=== PATIENT | male | born 1955 | race Two or more races ===

== ENCOUNTER 2023-08-11 08:30 | Outpatient (CLI) | payer OTHER | END 2023-08-11 08:31 | disposition home or self-care (01) | LOC: NUCLEAR 08:30 | PROVIDERS: ATTEND Colon & Rectal Surgery | DX: C20 Malignant neoplasm of rectum (principal) | CPT/HCPCS: 78816; A9552 ==

== ENCOUNTER 2024-02-17 18:38 | Inpatient (IN) | payer OTHER ==
[~2024-02-17] VITALS: Ht 182.9 cm; Wt 93.0 kg
[2024-02-17] MEDS ORDERED: GABAPENTIN100 M2 (18:56)
[2024-02-17] MEDS ORDERED: SPIRONOLACTONE25 MG (18:59)
[2024-02-17] MEDS ORDERED: IRBESARTAN300 MG (18:59)
[2024-02-17] MEDS ORDERED: NIFEDIPINE ER60 MG (18:59)
[2024-02-17] MEDS ORDERED: XIGDUO XR 5 MG1 EAC1 (19:00)
[2024-02-17] MEDS ORDERED: JANUVIA100 MG (19:00)
[2024-02-17 19:30] LABS: HEMATOCRIT 41.2 % (39.0-48.0); HEMOGLOBIN 13.1 g/dL (13-16.00); MEAN CELL VOLUME 84.7 fL (80.0-100.00); MEAN CORPUSCULAR HGB CONC 31.9 g/dl (32.0-36.0); PLATELET COUNT 185 K/uL (150-450); RED BLOOD COUNT 4.86 M/uL (4.00-6.00); RED CELL DISTRIBUTION WIDTH 18.4 % (11.5-14.5)
[2024-02-17] MEDS ORDERED: ENOXAPARIN SODIUM 100 MG/ML SYRINGE SUBCUTANEO ONE (19:30)
[2024-02-17] MEDS ORDERED: 0.9 % SODIUM CHLORIDE 1,000 ML IV SCH ×3 (19:30→21:00)
[2024-02-17 19:35] LABS: ABG PH 7.444 (7.35-7.45); ABG PO2 78.9 mmHg (80-100); BASE EXCESS -0.1 mmol/l; BICARBONATE 23.4 mmol/l (23-25); SaO2 96.1 %; Tco2 24.5 mmol/l
[2024-02-17 19:39] LABS: allen test SATISFACTORY; o2 21 %; puncture site RADIAL RIGHT
[2024-02-17 19:55] LABS: ALBUMIN 3.3 gm/dL (3.4-5.0); BILIRUBIN TOTAL 0.29 mg/dL (0.3-1.2); CALCIUM 9.5 mg/dL (8.5-10.1); CREATININE SERUM 1.19 mg/dL (0.70-1.30); GFR 60.79; GLOBULINA 4.1 G/DL (2.4-3.5); TOTAL PROTEIN 7.4 gm/dL (6.4-8.2)
[2024-02-17 20:09] LABS: PROTHROMBIN TIME 10.9 SECONDS (9.0-11.5)
[2024-02-17 20:16] LABS: D DIMER 21.29 MG/L; PARTIAL THROMBOPLASTIN TIME 25.5 SECONDS (22.0-34.0)
[2024-02-17] MEDS ORDERED: FAMOTIDINE/PF 20 MG in 0.9 % SODIUM CHLORIDE 100 ML IV SCH (20:52)
[2024-02-17] MEDS ORDERED: DEXTROSE 50 % IN WATER 0.5 G/ML DISP.SYRIN IV PRN (21:00)
[2024-02-17] MEDS ORDERED: ONDANSETRON HCL 4 MG in 0.9 % SODIUM CHLORIDE 50 ML IV PRN (21:00)
[2024-02-17] MEDS ORDERED: ENOXAPARIN SODIUM 100 MG/ML SYRINGE SUBCUTANEO SCH (21:00)
[2024-02-17] MEDS ORDERED: INSULIN LISPRO 1,000 UNIT/10 ML UNITS SUBCUTANEO PRN (21:00)
[2024-02-17] MEDS ORDERED: FAMOTIDINE/PF 20 MG/2 ML VIAL ONE (21:14)
[2024-02-17] MEDS ORDERED: POTASSIUM CHLORIDE/D5-0.9%NACL 1,000 ML IV ONE (21:15)
[2024-02-17] MEDS ORDERED: NIFEDIPINE 60 MG TAB.SA.OSM PO SCH (21:17)
[2024-02-17] MEDS ORDERED: IRBESARTAN 300 MG TABLET PO SCH (21:17)
[2024-02-17 21:40] LABS: PH,URINE 5.5 (5.0-8.0); URINE APPEARANCE Clear; URINE BACTERIA 18.8 uL (0.0-1933); URINE BILIRRUBIN Negative (NEGATIVE); URINE BLOOD Negative; URINE COLOR Yellow; URINE KETONE Negative (NEGATIVE); URINE LEUKOCYTE Negative; URINE NITRATE Negative; URINE PROTEIN Negative (NEGATIVE); URINE UROBILINOGEN 0.2 E.U./dl
[2024-02-17 21:47] LABS: URINE CAST 0.15 uL (0.0-1.40); URINE EPITHELIAL CELLS 1.3 uL (0.0-38.8); URINE GLUCOSE >=1000 MG/DL (NEGATIVE); URINE RBC 0.3 uL (0.0-20.8); URINE WBC 0.9 uL (0.0-23.2)
[2024-02-17 21:59] LABS: MAGNESIUM 1.9 mg/dL (1.8-2.4)
[2024-02-17 22:01] LABS: C-REACTIVE PROTEIN 0.83 MG/DL (0.00-0.29)
[2024-02-17 23:55] VITALS: BP 145/76; O2SAT 97
[2024-02-18] VITALS (7 sets, daily range): BP systolic 110–152; BP diastolic 79–81; O2SAT 96–97
[2024-02-18 06:39] LABS: ABG PH 7.427 (7.35-7.45); ABG pCO2 35.8 mmHg (35-45); BASE EXCESS -0.8 mmol/l; BICARBONATE 23.1 mmol/l (23-25); SaO2 94.9 %; Tco2 24.4 mmol/l; allen test SATISFACTORY; o2 21 %; puncture site RADIAL LEFT
[2024-02-18 06:40] LABS: ABG PO2 73.3 mmHg (80-100)
[2024-02-18] MEDS ORDERED: POTASSIUM CHLORIDE IN WATER 40 MEQ/100 ML PIGGYBAG IV SCH (12:00)
[2024-02-18] MEDS ORDERED: APIXABAN 5 MG TABLET PO SCH (17:00)
[2024-02-19] VITALS (9 sets, daily range): BP systolic 142–152; BP diastolic 80–93; O2SAT 92–96
[2024-02-19 10:07] LABS: HEMATOCRIT 35.8 % (39.0-48.0); HEMOGLOBIN 11.6 g/dL (13-16.00); MEAN CELL VOLUME 84.9 fL (80.0-100.00); MEAN CORPUSCULAR HEMOGLOBIN 27.5 pg (27.00-32.0); MEAN CORPUSCULAR HGB CONC 32.4 g/dl (32.0-36.0); RED BLOOD COUNT 4.21 M/uL (4.00-6.00); RED CELL DISTRIBUTION WIDTH 18.4 % (11.5-14.5)
[2024-02-19 10:08] LABS: PLATELET COUNT 129 K/uL (150-450)
[2024-02-19 10:29] LABS: ALBUMIN 2.8 gm/dL (3.4-5.0); BILIRUBIN TOTAL 0.28 mg/dL (0.3-1.2); CALCIUM 9.3 mg/dL (8.5-10.1); CREATININE SERUM 0.85 mg/dL (0.70-1.30); GFR 89.63; GLOBULINA 3.5 G/DL (2.4-3.5); TOTAL PROTEIN 6.3 gm/dL (6.4-8.2)
[2024-02-19 11:26] LABS: POTASSIUM 2.76 mEq/L (3.5-5.1)
[2024-02-19] MEDS ORDERED: POTASSIUM CHLORIDE 10 MEQ CAPSULE PO STA (11:26)
[2024-02-19] MEDS ORDERED: MAGNESIUM SULFATE IN WATER 50 ML IV NR (12:00)
[2024-02-19] MEDS ORDERED: POTASSIUM CHLORIDE 10 MEQ CAPSULE PO SCH (18:00)
[2024-02-20] VITALS (10 sets, daily range): BP systolic 131–160; BP diastolic 80–102; O2SAT 90–98
[2024-02-20 09:34] LABS: CALCIUM 8.8 mg/dL (8.5-10.1); CREATININE SERUM 0.91 mg/dL (0.70-1.30); GFR 82.85
[2024-02-20 10:39] LABS: POTASSIUM 2.77 mEq/L (3.5-5.1)
[2024-02-20] MEDS ORDERED: POTASSIUM CHLORIDE 10 MEQ CAPSULE PO SCH (13:00)
[2024-02-20] MEDS ORDERED: POTASSIUM CHLORIDE 10 MEQ CAPSULE PO ONE (21:56)
[2024-02-21 00:21] VITALS: O2SAT 94
[2024-02-21 01:54] VITALS: BP 130/69
[2024-02-21 05:26] VITALS: O2SAT 95
[2024-02-21 08:37] LABS: CALCIUM 9.1 mg/dL (8.5-10.1); CREATININE SERUM 0.76 mg/dL (0.70-1.30); GFR 101.99; POTASSIUM 3.15 mEq/L (3.5-5.1)
[2024-02-21 08:52] VITALS: BP 150/80; O2SAT 96
[2024-02-21 10:26] VITALS: O2SAT 95
[2024-02-21] MEDS ORDERED: SPIRONOLACTONE 50 MG TABLET PO SCH (11:18)
[2024-02-21] MEDS ORDERED: POTASSIUM CHLORIDE 10 MEQ CAPSULE PO SCH (12:00)
[2024-02-21] MEDS ORDERED: POTASSIUM CHLORIDE IN WATER 100 ML IV SCH (13:00)
[2024-02-21 16:00] VITALS: BP 153/86; O2SAT 95
[2024-02-21] MEDS ORDERED: ENOXAPARIN SODIUM 100 MG/ML SYRINGE SUBCUTANEO SCH (21:00)
[2024-02-22 02:25] VITALS: BP 160/85; O2SAT 98
[2024-02-22 08:18] VITALS: BP 154/83
[2024-02-22 09:06] LABS: HEMATOCRIT 38.3 % (39.0-48.0); HEMOGLOBIN 12.6 g/dL (13-16.00); MEAN CELL VOLUME 83.7 fL (80.0-100.00); MEAN CORPUSCULAR HEMOGLOBIN 27.5 pg (27.00-32.0); MEAN CORPUSCULAR HGB CONC 32.9 g/dl (32.0-36.0); PLATELET COUNT 188 K/uL (150-450); RED BLOOD COUNT 4.57 M/uL (4.00-6.00); RED CELL DISTRIBUTION WIDTH 18.4 % (11.5-14.5)
[2024-02-22 09:24] LABS: CALCIUM 9.8 mg/dL (8.5-10.1); CREATININE SERUM 0.87 mg/dL (0.70-1.30); GFR 87.26; POTASSIUM 3.32 mEq/L (3.5-5.1)
[2024-02-22] MEDS ORDERED: POTASSIUM CHLORIDE 20MEQ/100ML H2O PB IV NR (11:00)
[2024-02-22 17:18] VITALS: BP 138/95
[2024-02-22] MEDS ORDERED: IOVERSOL 320 MG/ML - 50 ML VIAL IV ONE (21:11)
[2024-02-23 01:19] VITALS: BP 162/100; O2SAT 98
[2024-02-23 04:04] VITALS: BP 140/80
[2024-02-23 07:53] VITALS: BP 151/103
[2024-02-23] MEDS ORDERED: ENOXAPARIN SODIUM 100 MG/ML SYRINGE SUBCUTANEO NR (09:00)
[2024-02-23 11:03] LABS: CALCIUM 9.6 mg/dL (8.5-10.1); CREATININE SERUM 0.77 mg/dL (0.70-1.30); GFR 100.47; MAGNESIUM 1.8 mg/dL (1.8-2.4); PHOSPHOROUS 3.2 mg/dL (2.5-4.9); POTASSIUM 3.16 mEq/L (3.5-5.1)
[2024-02-23] MEDS ORDERED: POTASSIUM CHLORIDE IN WATER 40 MEQ/100 ML PIGGYBAG IV SCH (14:00)
[2024-02-23] MEDS ORDERED: AA 4.25%/CAL/LYTES/DEXT 5% 2,000 ML PERIFERAL SCH (17:00)
[2024-02-23] MEDS ORDERED: DOXAZOSIN MESYLATE 4 MG TABLET PO SCH (21:00)
[2024-02-23 22:05] VITALS: BP 150/90
[2024-02-24 01:22] VITALS: BP 109/68; O2SAT 96
[2024-02-24 09:28] VITALS: BP 160/98; O2SAT 98
[2024-02-24 09:35] LABS: CALCIUM 9.2 mg/dL (8.5-10.1); CREATININE SERUM 0.7 mg/dL (0.70-1.30); GFR 112.15; MAGNESIUM 1.9 mg/dL (1.8-2.4); PHOSPHOROUS 3.1 mg/dL (2.5-4.9); POTASSIUM 3.28 mEq/L (3.5-5.1)
[2024-02-24] MEDS ORDERED: ENALAPRILAT DIHYDRATE 1.25 MG/ML VIAL IV ONE (09:35)
[2024-02-24 09:39] LABS: CHOL HDL RATIO 3.3 (0-5.0)
[2024-02-24] MEDS ORDERED: ENALAPRILAT DIHYDRATE 1.25 MG/ML VIAL IV PRN (09:45)
[2024-02-24] MEDS ORDERED: POTASSIUM CHLORIDE IN WATER 40 MEQ/100 ML PIGGYBAG IV SCH (12:00)
[2024-02-24] MEDS ORDERED: BUPIVACAINE HCL/MPF 0.5% 30ML VIAL ONE (12:52)
[2024-02-24] MEDS ORDERED: LIDOCAINE HCL 1%/EPINEPHRINE 20ML VIAL IJ ONE (12:52)
[2024-02-24] MEDS ORDERED: METRONIDAZOLE/SODIUM CHLORIDE 500 MG/100 ML PIGGYBACK IV ONE (12:53)
[2024-02-24] MEDS ORDERED: CEFTRIAXONE SODIUM 2,000 MG VIAL ONE (12:53)
[2024-02-24] MEDS ORDERED: MORPHINE SULFATE 4 MG/ML CARTRIDGE IV PRN (13:15)
[2024-02-24] MEDS ORDERED: OxyCODONE HCL 5 MG TABLET (ROXICODONE) PO PRN (13:15)
[2024-02-24] MEDS ORDERED: DEXTROSE 50 % IN WATER 0.5 G/ML DISP.SYRIN IV PRN (13:15)
[2024-02-24] MEDS ORDERED: AA 4.25%/CAL/LYTES/DEXT 5% 1,000 ML PERIFERAL SCH (17:00)
[2024-02-24] MEDS ORDERED: FAMOTIDINE/PF 20 MG/2 ML VIAL IV SCH (21:00)
[2024-02-24] MEDS ORDERED: ENOXAPARIN SODIUM 100 MG/ML SYRINGE SUBCUTANEO SCH (21:00)
[2024-02-24 21:41] VITALS: BP 152/84
[2024-02-25 01:56] VITALS: BP 140/85
[2024-02-25 08:11] LABS: HEMATOCRIT 32.9 % (39.0-48.0); HEMOGLOBIN 10.8 g/dL (13-16.00); MEAN CELL VOLUME 82.9 fL (80.0-100.00); MEAN CORPUSCULAR HEMOGLOBIN 27.3 pg (27.00-32.0); MEAN CORPUSCULAR HGB CONC 32.9 g/dl (32.0-36.0); PLATELET COUNT 201 K/uL (150-450); RED BLOOD COUNT 3.96 M/uL (4.00-6.00); RED CELL DISTRIBUTION WIDTH 17.6 % (11.5-14.5)
[2024-02-25 08:19] VITALS: BP 157/82
[2024-02-25 08:23] LABS: ALBUMIN 2.6 gm/dL (3.4-5.0); CALCIUM 8.5 mg/dL (8.5-10.1); CREATININE SERUM 0.56 mg/dL (0.70-1.30); GFR 145.08; MAGNESIUM 1.8 mg/dL (1.8-2.4); POTASSIUM 5.5 mEq/L (3.5-5.1)
[2024-02-25] MEDS ORDERED: LACTOBACILLUS ACIDOPHILUS 1 CAP CAP PO SCH (09:00)
[2024-02-25] MEDS ORDERED: hydrALAZINE HCL 25 MG TABLET PO STA (11:32)
[2024-02-25 16:00] VITALS: BP 122/80; O2SAT 98
[2024-02-25] MEDS ORDERED: POTASSIUM CHLORIDE IN WATER 40 MEQ/100 ML PIGGYBAG IV ONE (16:03)
[2024-02-25] MEDS ORDERED: MAGNESIUM SULFATE 50% 1,000 MG/2 ML VIAL IV ONE (17:00)
[2024-02-25] MEDS ORDERED: hydrALAZINE HCL 25 MG TABLET PO SCH (17:00)
[2024-02-25] MEDS ORDERED: ENOXAPARIN SODIUM 40 MG/0.4 ML SYRINGE SUBCUTANEO SCH (17:00)
[2024-02-25] MEDS ORDERED: MAGNESIUM SULFATE IN WATER 2 GM/50 ML PIGGYBAG IV ONE (18:12)
[2024-02-26 01:38] VITALS: BP 123/70
[2024-02-26 08:18] LABS: HEMATOCRIT 34.4 % (39.0-48.0); HEMOGLOBIN 11.2 g/dL (13-16.00); MEAN CELL VOLUME 84.6 fL (80.0-100.00); MEAN CORPUSCULAR HEMOGLOBIN 27.4 pg (27.00-32.0); MEAN CORPUSCULAR HGB CONC 32.4 g/dl (32.0-36.0); PLATELET COUNT 206 K/uL (150-450); RED BLOOD COUNT 4.07 M/uL (4.00-6.00); RED CELL DISTRIBUTION WIDTH 17.7 % (11.5-14.5)
[2024-02-26 08:30] LABS: ALBUMIN 2.7 gm/dL (3.4-5.0); CALCIUM 9.1 mg/dL (8.5-10.1); CREATININE SERUM 0.65 mg/dL (0.70-1.30); GFR 122.16; MAGNESIUM 2.2 mg/dL (1.8-2.4); PHOSPHOROUS 3.2 mg/dL (2.5-4.9)
[2024-02-26 08:51] LABS: POTASSIUM 2.69 mEq/L (3.5-5.1)
[2024-02-26] MEDS ORDERED: AMLODIPINE BESYLATE 5 MG TABLET PO SCH (09:00)
[2024-02-26] MEDS ORDERED: POTASSIUM CHLORIDE IN WATER 40 MEQ/100 ML PIGGYBAG IV SCH (09:08)
[2024-02-26] MEDS ORDERED: SPIRONOLACTONE 50 MG TABLET PO SCH (09:08)
[2024-02-26 09:20] VITALS: BP 149/90
[2024-02-26 16:00] VITALS: BP 134/69; O2SAT 96
[2024-02-26] MEDS ORDERED: CLONAZEPAM 0.5 MG TABLET PO SCH (21:00)
[2024-02-27 02:15] VITALS: BP 131/77; O2SAT 95
[2024-02-27 06:13] LABS: HEMATOCRIT 34.2 % (39.0-48.0); HEMOGLOBIN 11.2 g/dL (13-16.00); MEAN CELL VOLUME 82.9 fL (80.0-100.00); MEAN CORPUSCULAR HEMOGLOBIN 27.2 pg (27.00-32.0); MEAN CORPUSCULAR HGB CONC 32.7 g/dl (32.0-36.0); PLATELET COUNT 197 K/uL (150-450); RED BLOOD COUNT 4.12 M/uL (4.00-6.00); RED CELL DISTRIBUTION WIDTH 17.5 % (11.5-14.5)
[2024-02-27 06:52] LABS: INR 1.07; PARTIAL THROMBOPLASTIN TIME 29.5 SECONDS (22.0-34.0); PROTHROMBIN TIME 11.6 SECONDS (9.0-11.5)
[2024-02-27 06:55] LABS: ALBUMIN 2.7 gm/dL (3.4-5.0); ALKALINE PHOSPHATASE 73 U/L (50-136); ALT/SGPT 15 U/L (12-78); ANION GAP 11 (10.0-20.0); AST/SGOT 16 U/L (15-37); BILIRUBIN TOTAL 0.28 mg/dL (0.3-1.2); BILIRUBIN,CONJUGATED < 0.10 mg/dL (0.0-0.2); BILIRUBIN,UNCONJUGATED 0.18 mg/dL (0.0-0.6); BLOOD UREA NITROGEN 14 mg/dL (7-18); BUN CREA RATIO 23 (7.0-25.0); CALCIUM 9.1 mg/dL (8.5-10.1); CARBON DIOXIDE 26 mEq/L (21-32); CHLORIDE 110 mmol/L (98-107); CHOL HDL RATIO 3.3 (0-5.0); CHOLESTEROL 185 mg/dL (0-200); CREATININE SERUM 0.62 mg/dL (0.70-1.30); GLOBULINA 3.2 G/DL (2.4-3.5); GLUCOSE FASTING 139 mg/dL (65-100); HDL 56 mg/dl (40-60); LDL 110 mg/dl (0-130); OSMOLALITY SERUM 290 MOSM/KG (275-295); SODIUM 144 mmol/L (136-145); TOTAL IRON BINDING CAPACITY 393 ug/dl (250-450); TOTAL PROTEIN 5.9 gm/dL (6.4-8.2); TRIGLYCERIDES 97 mg/dL (0-150); VLDL 19 (0-39)
[2024-02-27 07:14] LABS: POTASSIUM 2.83 mEq/L (3.5-5.1)
[2024-02-27] MEDS ORDERED: POTASSIUM CHLORIDE 10 MEQ CAPSULE PO NR ×2 (07:52→13:00)
[2024-02-27 08:25] VITALS: BP 125/75; O2SAT 96
[2024-02-27 08:44] LABS: UREA CLEARANCE 18.6 ML/MIN
[2024-02-27 17:11] VITALS: BP 145/78; O2SAT 100
[2024-02-28] MEDS ORDERED: POTASSIUM CHLORIDE IN WATER 40 MEQ/100 ML PIGGYBAG IV SCH ×2 (01:00→09:00)
[2024-02-28 02:56] VITALS: BP 124/69; O2SAT 96
[2024-02-28 09:49] VITALS: BP 147/84; O2SAT 99
[2024-02-28 09:57] LABS: HEMATOCRIT 35.2 % (39.0-48.0); HEMOGLOBIN 11.5 g/dL (13-16.00); MEAN CELL VOLUME 83.1 fL (80.0-100.00); MEAN CORPUSCULAR HEMOGLOBIN 27.1 pg (27.00-32.0); MEAN CORPUSCULAR HGB CONC 32.6 g/dl (32.0-36.0); PLATELET COUNT 210 K/uL (150-450); RED BLOOD COUNT 4.23 M/uL (4.00-6.00); RED CELL DISTRIBUTION WIDTH 17.2 % (11.5-14.5)
[2024-02-28 19:15] VITALS: BP 136/68; O2SAT 96
[2024-02-28 22:33] VITALS: BP 149/78; O2SAT 96
[2024-02-29 02:10] VITALS: BP 153/82; O2SAT 98
[2024-02-29 08:42] LABS: CALCIUM 9.5 mg/dL (8.5-10.1); CREATININE SERUM 0.69 mg/dL (0.70-1.30); GFR 114.02; POTASSIUM 3.22 mEq/L (3.5-5.1)
[2024-02-29 09:05] VITALS: BP 105/65
[2024-02-29] MEDS ORDERED: POTASSIUM CHLORIDE 10 MEQ CAPSULE PO SCH (13:00)
[2024-02-29] MEDS ORDERED: BUPIVACAINE HCL/PF 0.25% 30ML VIAL InF ONE (14:00)
[2024-02-29] MEDS ORDERED: LIDOCAINE HCL 1%/EPINEPHRINE 20ML VIAL IJ ONE (14:00)
[2024-02-29] MEDS ORDERED: ERTAPENEM SODIUM 1,000 MG VIAL IV STA (14:37)
[2024-02-29] MEDS ORDERED: OxyCODONE HCL/APAP UD (PERCOCET) PO PRN (14:45)
[2024-02-29] MEDS ORDERED: GABAPENTIN 300 MG CAPSULE PO SCH (17:00)
[2024-02-29] MEDS ORDERED: SIMETHICONE 125 MG CAPSULE PO SCH (17:00)
[2024-02-29 17:06] LABS: HEMATOCRIT 37.5 % (39.0-48.0); MEAN CELL VOLUME 84.3 fL (80.0-100.00); PLATELET COUNT 217 K/uL (150-450); RED BLOOD COUNT 4.44 M/uL (4.00-6.00)
[2024-02-29] MEDS ORDERED: MORPHINE SULFATE 4 MG/ML VIAL IV ONE (17:30)
[2024-02-29 17:33] LABS: ALBUMIN 2.9 gm/dL (3.4-5.0); CREATININE SERUM 0.74 mg/dL (0.70-1.30); GFR 105.18; MAGNESIUM 1.9 mg/dL (1.8-2.4)
[2024-02-29] MEDS ORDERED: MORPHINE SULFATE 2 MG/ML CARTRIDGE IV ONE (18:00)
[2024-02-29 18:01] LABS: POTASSIUM 2.94 mEq/L (3.5-5.1)
[2024-02-29 23:07] VITALS: BP 124/76; O2SAT 97
[2024-03-01] MEDS ORDERED: POTASSIUM CHLORIDE 10 MEQ CAPSULE PO SCH ×4 (01:00→18:00)
[2024-03-01 06:17] LABS: HEMATOCRIT 40.5 % (39.0-48.0); HEMOGLOBIN 13.3 g/dL (13-16.00); MEAN CELL VOLUME 84.3 fL (80.0-100.00); MEAN CORPUSCULAR HEMOGLOBIN 27.6 pg (27.00-32.0); MEAN CORPUSCULAR HGB CONC 32.8 g/dl (32.0-36.0); PLATELET COUNT 191 K/uL (150-450); RED CELL DISTRIBUTION WIDTH 17.8 % (11.5-14.5)
[2024-03-01 07:12] LABS: CALCIUM 9.4 mg/dL (8.5-10.1); CREATININE SERUM 0.73 mg/dL (0.70-1.30); GFR 106.84; MAGNESIUM 2.2 mg/dL (1.8-2.4); PHOSPHOROUS 3.4 mg/dL (2.5-4.9); POTASSIUM 3.04 mEq/L (3.5-5.1)
[2024-03-01] MEDS ORDERED: POTASSIUM CHLORIDE IN WATER 100 ML IV SCH (09:00)
[2024-03-01] MEDS ORDERED: LACTOBACILLUS ACIDOPHILUS 1 CAP CAP PO SCH (09:00)
[2024-03-01 09:51] VITALS: BP 140/73
[2024-03-01] MEDS ORDERED: POTASSIUM CHLORIDE 10 MEQ CAPSULE PO NR (10:20)
[2024-03-01 16:34] VITALS: BP 121/75; O2SAT 92
[2024-03-01] MEDS ORDERED: ENOXAPARIN SODIUM 100 MG/ML SYRINGE SUBCUTANEO SCH (17:00)
[2024-03-01] MEDS ORDERED: ENOXAPARIN SODIUM 40 MG/0.4 ML SYRINGE SUBCUTANEO SCH (17:00)
[2024-03-02 01:04] VITALS: BP 150/79; O2SAT 95
[2024-03-02 04:57] VITALS: BP 150/90; O2SAT 98
[2024-03-02 05:51] LABS: ALBUMIN 2.8 gm/dL (3.4-5.0); CALCIUM 9.7 mg/dL (8.5-10.1); CREATININE SERUM 0.74 mg/dL (0.70-1.30); GFR 105.18; MAGNESIUM 2.1 mg/dL (1.8-2.4); PHOSPHOROUS 3.2 mg/dL (2.5-4.9); POTASSIUM 3.32 mEq/L (3.5-5.1)
[2024-03-02 06:53] LABS: HEMATOCRIT 41.1 % (39.0-48.0); HEMOGLOBIN 13.5 g/dL (13-16.00); MEAN CELL VOLUME 82.5 fL (80.0-100.00); MEAN CORPUSCULAR HEMOGLOBIN 27.2 pg (27.00-32.0); PLATELET COUNT 190 K/uL (150-450); RED BLOOD COUNT 4.98 M/uL (4.00-6.00); RED CELL DISTRIBUTION WIDTH 17.4 % (11.5-14.5)
[2024-03-02] MEDS ORDERED: POTASSIUM PHOS,M-BASIC-D-BASIC 15 MM in 0.9 % SODIUM CHLORIDE 250 ML IV NR (08:52)
[2024-03-02] MEDS ORDERED: POTASSIUM CHLORIDE 10 MEQ CAPSULE PO SCH (09:00)
[2024-03-02 09:41] VITALS: BP 159/94; O2SAT 96
[2024-03-02 16:32] VITALS: BP 186/100
[2024-03-02 19:46] VITALS: BP 156/93
[2024-03-03 00:24] VITALS: BP 160/85; O2SAT 98
[2024-03-03 03:58] VITALS: O2SAT 90
[2024-03-03] MEDS ORDERED: POTASSIUM CHLORIDE 20MEQ/100ML H2O PB IV ONE (05:15)
[2024-03-03 06:48] LABS: HEMATOCRIT 40.4 % (39.0-48.0); HEMOGLOBIN 13.3 g/dL (13-16.00); MEAN CELL VOLUME 82.8 fL (80.0-100.00); MEAN CORPUSCULAR HEMOGLOBIN 27.3 pg (27.00-32.0); PLATELET COUNT 167 K/uL (150-450); RED BLOOD COUNT 4.88 M/uL (4.00-6.00); RED CELL DISTRIBUTION WIDTH 17.6 % (11.5-14.5)
[2024-03-03 07:50] LABS: CALCIUM 9.5 mg/dL (8.5-10.1); CREATININE SERUM 0.63 mg/dL (0.70-1.30); GFR 126.65; POTASSIUM 3.81 mEq/L (3.5-5.1)
[2024-03-03 07:51] LABS: ALBUMIN 2.7 gm/dL (3.4-5.0); CALCIUM 9.5 mg/dL (8.5-10.1); CREATININE SERUM 0.63 mg/dL (0.70-1.30); GFR 126.65; MAGNESIUM 1.9 mg/dL (1.8-2.4); PHOSPHOROUS 3.4 mg/dL (2.5-4.9); POTASSIUM 3.64 mEq/L (3.5-5.1)
[2024-03-03 08:38] VITALS: BP 143/90; O2SAT 97
[2024-03-03 15:50] VITALS: BP 140/80; O2SAT 98
[2024-03-04 01:12] VITALS: BP 135/81; O2SAT 97
[2024-03-04 09:00] VITALS: BP 166/89; O2SAT 98
[2024-03-04] MEDS ORDERED: MAGNESIUM SULFATE/D5W 100 ML IV NR (11:15)
[2024-03-04] MEDS ORDERED: NAPH,MB-DB/K PH,MBDB 1 PKT PACKET PO NR (11:15)
[2024-03-04] MEDS ORDERED: ONDANSETRON HCL 2 MG/ML VIAL IV PRN (14:30)
[2024-03-04 16:53] VITALS: BP 145/60; O2SAT 98
[2024-03-05 00:58] VITALS: BP 160/85; O2SAT 97
[2024-03-05 08:46] VITALS: BP 147/84; O2SAT 97
[2024-03-05] MEDS ORDERED: LOPERAMIDE HCL 2 MG CAPSULE PO STA (12:51)
[2024-03-05] MEDS ORDERED: LOPERAMIDE HCL 2 MG CAPSULE PO SCH (13:00)
[2024-03-05 16:10] LABS: HEMATOCRIT 37.6 % (39.0-48.0); HEMOGLOBIN 12.3 g/dL (13-16.00); MEAN CELL VOLUME 81.5 fL (80.0-100.00); MEAN CORPUSCULAR HEMOGLOBIN 26.7 pg (27.00-32.0); MEAN CORPUSCULAR HGB CONC 32.7 g/dl (32.0-36.0); PLATELET COUNT 177 K/uL (150-450); RED BLOOD COUNT 4.61 M/uL (4.00-6.00); RED CELL DISTRIBUTION WIDTH 16.8 % (11.5-14.5)
[2024-03-05 16:29] LABS: ALBUMIN 2.7 gm/dL (3.4-5.0); CALCIUM 9.3 mg/dL (8.5-10.1); CREATININE SERUM 0.76 mg/dL (0.70-1.30); GFR 101.99; PHOSPHOROUS 3.1 mg/dL (2.5-4.9)
[2024-03-05 16:55] VITALS: BP 134/96; O2SAT 96
[2024-03-05 17:26] LABS: POTASSIUM 2.56 mEq/L (3.5-5.1)
[2024-03-05 20:37] VITALS: BP 170/80; O2SAT 96
[2024-03-05] MEDS ORDERED: APIXABAN 5 MG TABLET PO SCH (21:00)
[2024-03-05] MEDS ORDERED: POTASSIUM CHLORIDE 10 MEQ CAPSULE PO SCH (21:00)
[2024-03-06 00:44] VITALS: BP 140/85; O2SAT 97
[2024-03-06 05:24] VITALS: BP 165/80; O2SAT 99
[2024-03-06 07:50] LABS: HEMATOCRIT 40.4 % (39.0-48.0); HEMOGLOBIN 13.2 g/dL (13-16.00); MEAN CELL VOLUME 83.1 fL (80.0-100.00); MEAN CORPUSCULAR HEMOGLOBIN 27.2 pg (27.00-32.0); MEAN CORPUSCULAR HGB CONC 32.7 g/dl (32.0-36.0); PLATELET COUNT 183 K/uL (150-450); RED BLOOD COUNT 4.86 M/uL (4.00-6.00); RED CELL DISTRIBUTION WIDTH 16.6 % (11.5-14.5)
[2024-03-06 08:24] LABS: CREATININE SERUM 0.82 mg/dL (0.70-1.30); GFR 93.43; PHOSPHOROUS 2.8 mg/dL (2.5-4.9)
[2024-03-06] MEDS ORDERED: RINGERS SOLUTION,LACTATED 1,000 ML IV SCH (08:30)
[2024-03-06 08:41] LABS: POTASSIUM 2.96 mEq/L (3.5-5.1)
[2024-03-06] MEDS ORDERED: POTASSIUM CHLORIDE 10 MEQ CAPSULE PO SCH ×2 (09:00→13:00)
[2024-03-06] MEDS ORDERED: FAMOtidine 20 MG TABLET PO SCH (09:00)
[2024-03-06] MEDS ORDERED: LOPERAMIDE HCL 2 MG CAPSULE PO SCH (09:00)
[2024-03-06 10:28] VITALS: BP 152/99; O2SAT 98
[2024-03-06 17:17] VITALS: BP 160/85; O2SAT 97
[2024-03-06 23:58] VITALS: BP 150/85; O2SAT 97
[2024-03-07 01:24] VITALS: BP 147/83; O2SAT 99
[2024-03-07 05:54] VITALS: BP 140/80
[2024-03-07 08:12] LABS: ALBUMIN 2.6 gm/dL (3.4-5.0); CALCIUM 9.8 mg/dL (8.5-10.1); CREATININE SERUM 0.66 mg/dL (0.70-1.30); GFR 120.03; MAGNESIUM 2.1 mg/dL (1.8-2.4); PHOSPHOROUS 2.8 mg/dL (2.5-4.9); POTASSIUM 3.19 mEq/L (3.5-5.1)
[2024-03-07 08:20] VITALS: BP 142/82; O2SAT 95
[2024-03-07] MEDS ORDERED: LOPERAMIDE HCL 2 MG CAPSULE PO SCH (09:00)
[2024-03-07] MEDS ORDERED: POTASSIUM CHLORIDE 10 MEQ CAPSULE PO SCH (12:00)
[2024-03-07 18:09] VITALS: BP 151/80; O2SAT 97
[2024-03-07] MEDS ORDERED: LACTOBACILLUS ACIDOPHILUS 1 CAP CAP PO SCH (21:00)
[2024-03-08 02:06] VITALS: BP 143/87; O2SAT 97
[2024-03-08 06:35] LABS: ALBUMIN 2.7 gm/dL (3.4-5.0); CALCIUM 9.7 mg/dL (8.5-10.1); CREATININE SERUM 0.7 mg/dL (0.70-1.30); GFR 112.15; PHOSPHOROUS 2.8 mg/dL (2.5-4.9); POTASSIUM 3.21 mEq/L (3.5-5.1)
[2024-03-08 08:23] VITALS: BP 147/87
[2024-03-08] MEDS ORDERED: DIPHENOXYLATE HCL/ATROPINE 1 UDTAB TABLET PO STA (08:29)
[2024-03-08] MEDS ORDERED: POTASSIUM CHLORIDE 10 MEQ CAPSULE PO SCH ×2 (09:00→17:00)
[2024-03-08] MEDS ORDERED: POTASSIUM PHOS,M-BASIC-D-BASIC 15 MM in 0.9 % SODIUM CHLORIDE 250 ML IV NR (09:14)
[2024-03-08] MEDS ORDERED: DIPHENOXYLATE HCL/ATROPINE 1 UDTAB TABLET PO SCH (17:00)
[2024-03-08 18:35] VITALS: BP 136/80
[2024-03-08 22:17] VITALS: BP 111/79
[2024-03-09 03:02] VITALS: BP 138/81
[2024-03-09 08:01] LABS: HEMATOCRIT 36.2 % (39.0-48.0); HEMOGLOBIN 11.9 g/dL (13-16.00); MEAN CELL VOLUME 80.7 fL (80.0-100.00); MEAN CORPUSCULAR HEMOGLOBIN 26.5 pg (27.00-32.0); MEAN CORPUSCULAR HGB CONC 32.9 g/dl (32.0-36.0); PLATELET COUNT 208 K/uL (150-450); RED BLOOD COUNT 4.49 M/uL (4.00-6.00); RED CELL DISTRIBUTION WIDTH 17.2 % (11.5-14.5)
[2024-03-09 08:46] LABS: ALBUMIN 2.6 gm/dL (3.4-5.0); BILIRUBIN TOTAL 0.3 mg/dL (0.3-1.2); CALCIUM 9.5 mg/dL (8.5-10.1); CREATININE SERUM 0.7 mg/dL (0.70-1.30); GFR 112.15; GLOBULINA 3.2 G/DL (2.4-3.5); POTASSIUM 3.63 mEq/L (3.5-5.1); TOTAL PROTEIN 5.8 gm/dL (6.4-8.2)
[2024-03-09 09:13] VITALS: BP 124/80
[2024-03-09] MEDS ORDERED: POTASSIUM PHOS,M-BASIC-D-BASIC 15 MM in 0.9 % SODIUM CHLORIDE 250 ML IV NR (11:00)
[2024-03-09] MEDS ORDERED: AVAPRO300 MG PO (13:36)
[2024-03-09] MEDS ORDERED: AMLODIPINE BESYL5 MG PO (13:36)
[2024-03-09] MEDS ORDERED: ELIQUIS5 MG PO (13:36)
[2024-03-09] MEDS ORDERED: HYDRALAZINE HCL25 MG PO (13:37)
[2024-03-09] MEDS ORDERED: FAMOTIDINE20 MG PO (13:38)
[2024-03-09] MEDS ORDERED: INTESTINEX680 M1 PO (13:39)
[2024-03-09] MEDS ORDERED: POTASSIUM CHLO20 ME1 PO (13:40)
[2024-03-09] MEDS ORDERED: NASAL MIST126 ML NASAL (13:40)
== END 2024-03-09 17:05 | disposition home or self-care (01) | DRG 982 ==
LOC: ER 18:39 → MEDJ 21:58
PROVIDERS: Colon & Rectal Surgery; General Practice; Internal Medicine; ADMIT Internal Medicine; ATTEND Internal Medicine
PROC: 4A12X4Z Monitoring of Cardiac Electrical Activity, External Approach (ICD-10-PCS; 2024-02-18)
PROC: B24BZZZ Ultrasonography of Heart with Aorta (ICD-10-PCS; 2024-02-18)
PROC: B54DZZZ Ultrasonography of Bilateral Lower Extremity Veins (ICD-10-PCS; 2024-02-18)
PROC: 06H03DZ Insertion of Intraluminal Device into Inferior Vena Cava, Percutaneous Approach (ICD-10-PCS; 2024-02-22)
PROC: 0D1B4Z4 Bypass Ileum to Cutaneous, Percutaneous Endoscopic Approach (ICD-10-PCS; principal; 2024-02-29 14:30)
PROC: BW21ZZZ Computerized Tomography (CT Scan) of Abdomen and Pelvis (ICD-10-PCS; 2024-03-02)
DX: I26.99 Other pulmonary embolism without acute cor pulmonale (principal); C20 Malignant neoplasm of rectum; K56.600 Partial intestinal obstruction, unspecified as to cause; C78.7 Secondary malignant neoplasm of liver and intrahepatic bile duct; K91.870 Postprocedural hematoma of a digestive system organ or structure following a digestive system procedure; I80.222 Phlebitis and thrombophlebitis of left popliteal vein; I80.232 Phlebitis and thrombophlebitis of left tibial vein; C34.90 Malignant neoplasm of unspecified part of unspecified bronchus or lung; E87.6 Hypokalemia; E11.8 Type 2 diabetes mellitus with unspecified complications; Z79.4 Long term (current) use of insulin; M06.9 Rheumatoid arthritis, unspecified; R00.1 Bradycardia, unspecified; F43.20 Adjustment disorder, unspecified; I87.2 Venous insufficiency (chronic) (peripheral); I11.0 Hypertensive heart disease with heart failure; I50.9 Heart failure, unspecified

== ENCOUNTER → 2024-02-17 | Outpatient (CLI) | payer OTHER ==
[~2024-02-17] MED LIST: GABAPENTIN100 M2; IRBESARTAN300 MG; JANUVIA100 MG; NIFEDIPINE ER60 MG; SPIRONOLACTONE25 MG; XIGDUO XR 5 MG1 EAC1
== END | disposition home or self-care (01) ==
LOC: TOM 07:02
PROVIDERS: ATTEND Internal Medicine
DX: C20 Malignant neoplasm of rectum (principal); C78.7 Secondary malignant neoplasm of liver and intrahepatic bile duct
CPT/HCPCS: 71270; 74178; Q9965

== ENCOUNTER 2024-04-01 18:58 | Inpatient (IN) | payer OTHER ==
[~2024-04-01] VITALS: Ht 188 cm; Wt 72.6 kg
[~2024-04-01 18:58] MED LIST changes: +AMLODIPINE BESYL5 MG PO; +AVAPRO300 MG PO; +ELIQUIS5 MG PO; +FAMOTIDINE20 MG PO; +HYDRALAZINE HCL25 MG PO; +INTESTINEX680 M1 PO; +NASAL MIST126 ML NASAL; +POTASSIUM CHLO20 ME1 PO
[2024-04-01] MEDS ORDERED: 0.9 % SODIUM CHLORIDE 1,000 ML IV SCH (19:15)
[2024-04-01 19:49] LABS: HEMATOCRIT 46.6 % (39.0-48.0); HEMOGLOBIN 15.6 g/dL (13-16.00); MEAN CELL VOLUME 78.8 fL (80.0-100.00); MEAN CORPUSCULAR HEMOGLOBIN 26.5 pg (27.00-32.0); MEAN CORPUSCULAR HGB CONC 33.6 g/dl (32.0-36.0); PLATELET COUNT 271 K/uL (150-450); RED BLOOD COUNT 5.91 M/uL (4.00-6.00); RED CELL DISTRIBUTION WIDTH 18.1 % (11.5-14.5)
[2024-04-01 20:11] LABS: ABG PH 7.321 (7.35-7.45); ABG PO2 106.8 mmHg (80-100); ABG pCO2 27.6 mmHg (35-45); BASE EXCESS -10.4 mmol/l; BICARBONATE 13.9 mmol/l (23-25); SaO2 97.3 %; Tco2 14.8 mmol/l
[2024-04-01 20:12] LABS: ALBUMIN 3.4 gm/dL (3.4-5.0); BILIRUBIN TOTAL 0.33 mg/dL (0.3-1.2); CALCIUM 10.6 mg/dL (8.5-10.1); CREATININE SERUM 2.61 mg/dL (0.70-1.30); GFR 24.56; GLOBULINA 4.3 G/DL (2.4-3.5); POTASSIUM 4.7 mEq/L (3.5-5.1); TOTAL PROTEIN 7.7 gm/dL (6.4-8.2)
[2024-04-01 20:28] LABS: puncture site RADIAL RIGHT
[2024-04-01 20:29] LABS: allen test SATISFACTORY; o2 21 %
[2024-04-01 21:51] LABS: PH,URINE 5.5 (5.0-8.0); URINE APPEARANCE Clear; URINE BILIRRUBIN Negative (NEGATIVE); URINE BLOOD Negative; URINE COLOR Yellow; URINE KETONE Negative (NEGATIVE); URINE LEUKOCYTE Negative; URINE NITRATE Negative; URINE PROTEIN 30 (NEGATIVE); URINE UROBILINOGEN 0.2 E.U./dl
[2024-04-01 21:55] LABS: URINE BACTERIA 30.2 uL (0.0-1933); URINE CAST 5.03 uL (0.0-1.40); URINE EPITHELIAL CELLS 4.1 uL (0.0-38.8); URINE WBC 2.4 uL (0.0-23.2)
[2024-04-01 22:17] LABS: URINE GLUCOSE 250 MG/DL (NEGATIVE); URINE RBC 1.2 uL (0.0-20.8)
[2024-04-02 05:07] LABS: HEMOGLOBIN 14.9 g/dL (13-16.00); MEAN CELL VOLUME 79.3 fL (80.0-100.00); MEAN CORPUSCULAR HEMOGLOBIN 26.3 pg (27.00-32.0); MEAN CORPUSCULAR HGB CONC 33.1 g/dl (32.0-36.0); PLATELET COUNT 227 K/uL (150-450); RED BLOOD COUNT 5.68 M/uL (4.00-6.00); RED CELL DISTRIBUTION WIDTH 17.5 % (11.5-14.5)
[2024-04-02 05:40] LABS: ALBUMIN 3.3 gm/dL (3.4-5.0); BILIRUBIN TOTAL 0.42 mg/dL (0.3-1.2); CALCIUM 10.2 mg/dL (8.5-10.1); CREATININE SERUM 2.08 mg/dL (0.70-1.30); GFR 31.91; GLOBULINA 4.1 G/DL (2.4-3.5); POTASSIUM 4.8 mEq/L (3.5-5.1); TOTAL PROTEIN 7.4 gm/dL (6.4-8.2)
[2024-04-02] MEDS ORDERED: DEXTROSE 50 % IN WATER 0.5 G/ML DISP.SYRIN IV PRN (11:45)
[2024-04-02] MEDS ORDERED: INSULIN LISPRO 1,000 UNIT/10 ML UNITS SUBCUTANEO PRN (11:45)
[2024-04-02] MEDS ORDERED: LACTOBACILLUS ACIDOPHILUS 1 CAP CAP PO SCH (11:49)
[2024-04-02] MEDS ORDERED: VITAMIN B COMPLEX/LYSINE 1 ML ML PO SCH (11:49)
[2024-04-02] MEDS ORDERED: APIXABAN 5 MG TABLET PO SCH (11:50)
[2024-04-02] MEDS ORDERED: RINGERS SOLUTION,LACTATED 1,000 ML IV SCH (11:51)
[2024-04-02] MEDS ORDERED: FAMOTIDINE/PF 20 MG in 0.9 % SODIUM CHLORIDE 100 ML IV SCH (11:53)
[2024-04-02] MEDS ORDERED: LOPERAMIDE HCL 2 MG CAPSULE PO PRN (12:00)
[2024-04-02] MEDS ORDERED: ACETAMINOPHEN 500 MG GEL..CAP PO PRN (12:00)
[2024-04-02 13:01] LABS: PARTIAL THROMBOPLASTIN TIME 28.5 SECONDS (22.0-34.0); PROTHROMBIN TIME 10.9 SECONDS (9.0-11.5)
[2024-04-02 13:13] LABS: ALBUMIN 3.3 gm/dL (3.4-5.0); ALKALINE PHOSPHATASE 131 U/L (50-136); ALT/SGPT 19 U/L (12-78); ANION GAP 9 (10.0-20.0); AST/SGOT 12 U/L (15-37); BILIRUBIN,CONJUGATED < 0.10 mg/dL (0.0-0.2); BLOOD UREA NITROGEN 73 mg/dL (7-18); BUN CREA RATIO 37 (7.0-25.0); CALCIUM 10.3 mg/dL (8.5-10.1); CARBON DIOXIDE 24 mEq/L (21-32); CHLORIDE 104 mmol/L (98-107); CKMB 1.3 NG/ML (0.5-3.6); CREATININE SERUM 1.97 mg/dL (0.70-1.30); GFR 33.98; OSMOLALITY SERUM 294 MOSM/KG (275-295); PHOSPHOROUS 2.4 mg/dL (2.5-4.9); POTASSIUM 4.27 mEq/L (3.5-5.1); SODIUM 133 mmol/L (136-145); TOTAL PROTEIN 8.2 gm/dL (6.4-8.2)
[2024-04-02 13:50] LABS: GLUCOSE FASTING 215 mg/dL (65-100)
[2024-04-02 17:27] VITALS: BP 136/68; O2SAT 100
[2024-04-03 00:45] VITALS: BP 123/65; O2SAT 100
[2024-04-03 08:45] LABS: BILIRUBIN TOTAL 0.31 mg/dL (0.3-1.2); CALCIUM 9.8 mg/dL (8.5-10.1); CREATININE SERUM 1.47 mg/dL (0.70-1.30); GFR 47.64; GLOBULINA 3.5 G/DL (2.4-3.5); POTASSIUM 4.41 mEq/L (3.5-5.1); TOTAL PROTEIN 6.5 gm/dL (6.4-8.2)
[2024-04-03] MEDS ORDERED: VITAMIN B COMPLEX/LYSINE 1 ML ML PO SCH (09:00)
[2024-04-03 09:27] VITALS: BP 133/68
[2024-04-03 17:01] VITALS: BP 156/88; O2SAT 98
[2024-04-03 23:30] VITALS: BP 128/72; O2SAT 100
[2024-04-04 08:00] VITALS: BP 143/71; O2SAT 100
[2024-04-04 10:19] LABS: CALCIUM 9.2 mg/dL (8.5-10.1); CREATININE SERUM 1.64 mg/dL (0.70-1.30); GFR 41.98; POTASSIUM 4.44 mEq/L (3.5-5.1)
== END 2024-04-04 12:27 | disposition home or self-care (01) | DRG 683 ==
LOC: ER 18:58 → SEC-K 04-02 12:08 → SURH 04-02 12:08
PROVIDERS: Emergency Medicine; General Practice; ADMIT Internal Medicine; ATTEND Internal Medicine
PROC: BB24ZZZ Computerized Tomography (CT Scan) of Bilateral Lungs (ICD-10-PCS; 2024-04-01)
PROC: B020ZZZ Computerized Tomography (CT Scan) of Brain (ICD-10-PCS; 2024-04-02)
PROC: 4A12X4Z Monitoring of Cardiac Electrical Activity, External Approach (ICD-10-PCS; 2024-04-02)
PROC: B246ZZZ Ultrasonography of Right and Left Heart (ICD-10-PCS; principal; 2024-04-03)
DX: N17.9 Acute kidney failure, unspecified (principal); C18.9 Malignant neoplasm of colon, unspecified; C78.00 Secondary malignant neoplasm of unspecified lung; C78.7 Secondary malignant neoplasm of liver and intrahepatic bile duct; E86.0 Dehydration; R63.0 Anorexia; R41.82 Altered mental status, unspecified; I12.9 Hypertensive chronic kidney disease with stage 1 through stage 4 chronic kidney disease, or unspecified chronic kidney disease; E11.9 Type 2 diabetes mellitus without complications; N18.9 Chronic kidney disease, unspecified; Z93.2 Ileostomy status; Z68.20 Body mass index [BMI] 20.0-20.9, adult; Z79.4 Long term (current) use of insulin

== ENCOUNTER 2024-07-17 07:04 | Outpatient (CLI) | payer OTHER | END 2024-07-17 07:19 | disposition home or self-care (01) | LOC: TOM 07:04 | PROVIDERS: ATTEND Internal Medicine | DX: C78.00 Secondary malignant neoplasm of unspecified lung (principal); C20 Malignant neoplasm of rectum | CPT/HCPCS: 71250; 74178; Q9965 ==

== ENCOUNTER 2024-10-26 16:44 | Emergency (ER) | payer OTHER ==
[~2024-10-26] VITALS: Ht 182.9 cm; Wt 93.0 kg
[2024-10-26] MEDS ORDERED: LIPITOR40 M1 PO (17:23)
[2024-10-26] MEDS ORDERED: IRBESARTAN300 MG PO (17:24)
[2024-10-26] MEDS ORDERED: LOMOTIL PO (17:24)
[2024-10-26] MEDS ORDERED: TOPROL XL50 M1 PO (17:24)
[2024-10-26] MEDS ORDERED: NIFEDIPINE20 MG PO (17:24)
[2024-10-26 17:27] VITALS: BP 120/80; O2SAT 97
[2024-10-26] MEDS ORDERED: FUROsemide 20 MG/2 ML VIAL ONE (18:38)
[2024-10-26] MEDS ORDERED: FUROsemide 20 MG/2 ML VIAL IV ONE (18:45)
[2024-10-26 19:03] LABS: BASO % 0.6 % (0.1-1.2); EOS # 0.11 (0.04-0.54); HEMATOCRIT 37.6 % (40.1-51.0); LYMPH # 1.93 (1.18-3.74); LYMPH % 35.9 % (19.3-53.1); MEAN CORPUSCULAR HEMOGLOBIN 28.3 pg (25.6-32.2); MONO # 0.69 (0.24-0.82); NEUT # 2.56 (1.56-6.13); NEUT % 47.8 % (34.0-71.1); PLATELET COUNT 202 K/uL (163-369); RED BLOOD COUNT 4.24 M/uL (4.63-6.08); RED CELL DISTRIBUTION WIDTH 16.7 % (11.6-14.4)
[2024-10-26 19:05] LABS: MONO % 12.8 % (4.7-12.5)
[2024-10-26 19:23] LABS: INR 0.96; PROTHROMBIN TIME 10.5 SECONDS (9.0-11.5)
[2024-10-26 19:34] LABS: ALKALINE PHOSPHATASE 213 U/L (50-136); ALT/SGPT 44 U/L (12-78); ANION GAP 11 (10.0-20.0); AST/SGOT 41 U/L (15-37); BILIRUBIN TOTAL 0.32 mg/dL (0.3-1.2); BILIRUBIN,CONJUGATED < 0.10 mg/dL (0.0-0.2); BILIRUBIN,UNCONJUGATED 0.22 mg/dL (0.0-0.6); BLOOD UREA NITROGEN 47 mg/dL (7-18); BUN CREA RATIO 24 (7.0-25.0); CALCIUM 8.9 mg/dL (8.5-10.1); CARBON DIOXIDE 23 mEq/L (21-32); CHLORIDE 111 mmol/L (98-107); CREATININE SERUM 1.92 mg/dL (0.70-1.30); GLOBULINA 3.7 G/DL (2.4-3.5); OSMOLALITY SERUM 298 MOSM/KG (275-295); POTASSIUM 4.51 mEq/L (3.5-5.1); SODIUM 140 mmol/L (136-145); TOTAL PROTEIN 6.7 gm/dL (6.4-8.2)
[2024-10-26 19:56] LABS: GLUCOSE FASTING 210 mg/dL (65-100)
== END 2024-10-26 21:08 | disposition home or self-care (01) ==
LOC: ER 17:13
PROVIDERS: General Practice
DX: R60.0 Localized edema (principal); Z91.040 Latex allergy status
CPT/HCPCS: 36415; 71046; 96365; 99283; J3490

== ENCOUNTER 2024-11-09 14:43 | Outpatient (CLI) | payer OTHER ==
[~2024-11-09 14:43] MED LIST changes: +IRBESARTAN300 MG PO; +LIPITOR40 M1 PO; +LOMOTIL PO; +NIFEDIPINE20 MG PO; +TOPROL XL50 M1 PO
== END 2024-11-09 14:47 | disposition home or self-care (01) ==
LOC: RAD 14:43
DX: M54.2 Cervicalgia (principal); M54.50 Low back pain, unspecified; M54.6 Pain in thoracic spine

== ENCOUNTER 2024-11-23 07:21 | Outpatient (CLI) | payer OTHER | END 2024-11-23 07:22 | disposition home or self-care (01) | LOC: NUCLEAR 07:21 | PROVIDERS: ATTEND Internal Medicine | DX: C20 Malignant neoplasm of rectum (principal); C78.7 Secondary malignant neoplasm of liver and intrahepatic bile duct; N18.32 Chronic kidney disease, stage 3b | CPT/HCPCS: 78815; A9552 ==

== ENCOUNTER 2025-01-28 11:09 | Emergency (ER) | payer OTHER ==
[~2025-01-28] VITALS: Ht 188 cm; Wt 77.1 kg
[2025-01-28] MEDS ORDERED: 0.9 % SODIUM CHLORIDE 1,000 ML IV SCH (11:45)
[2025-01-28 12:23] LABS: BASO % 0.6 % (0.1-1.2); EOS # 0.02 (0.04-0.54); EOS % 0.1 % (0.7-7.0); LYMPH # 0.92 (1.18-3.74); LYMPH % 6.8 % (19.3-53.1); MEAN PLATELET VOLUME 9.20 fl (9.4-12.4); MONO # 0.92 (0.24-0.82); MONO % 6.8 % (4.7-12.5); NEUT # 11.02 (1.56-6.13); NEUT % 82.1 % (34.0-71.1); RED CELL DISTRIBUTION WIDTH 19.3 % (11.6-14.4)
[2025-01-28 12:48] LABS: COVID-19 AG NEGATIVE (NEGATIVE)
[2025-01-28 13:04] LABS: ALT/SGPT 21.0 U/L (12-78); AST/SGOT 20.0 U/L (15-37); BILIRUBIN TOTAL 0.71 mg/dL (0.3-1.2); BUN CREA RATIO 25.0 (7.0-25.0); CREATININE SERUM 1.79 mg/dL (0.70-1.30); GFR 37.84; GLOBULINA 5.6 G/DL (2.4-3.5); GLUCOSE FASTING 290.0 mg/dL (65-100); OSMOLALITY SERUM 289.0 MOSM/KG (275-295)
== END 2025-01-28 17:12 | disposition home or self-care (01) ==
LOC: ER 11:09
PROVIDERS: Emergency Medicine
DX: R41.0 Disorientation, unspecified (principal); C79.31 Secondary malignant neoplasm of brain; I10 Essential (primary) hypertension; E11.9 Type 2 diabetes mellitus without complications; Z79.84 Long term (current) use of oral hypoglycemic drugs; Z91.040 Latex allergy status; Z20.822 Contact with and (suspected) exposure to COVID-19
CPT/HCPCS: 36415; 70450; 71045; 93005; 96365; 96366; 99284; J7030